=== PATIENT | male | born 1990 | race Caucasian/White ===

== ENCOUNTER 2021-10-27 09:56 | Emergency (ER) | payer OTHER ==
[~2021-10-27] VITALS: Ht 175.3 cm; Wt 75.0 kg
[2021-10-27] MEDS ORDERED: SERT-158 PO (09:57)
[2021-10-27] MEDS ORDERED: DEXAMETHASONE SOD PHOS 4 MG/ML 5 ML VIAL IM ONE (12:30)
[2021-10-27] MEDS ORDERED: AMOX TR/POT CLAV 875 MG/125 MG TABLET PO ONE (12:30)
[2021-10-27] MEDS ORDERED: AMOX1TAB16 PO (13:17)
[2021-10-27] MEDS ORDERED: IBUP-2070 PO (13:17)
[2021-10-27 13:22] VITALS: BP 121/64
== END 2021-10-27 13:22 | disposition home or self-care (01) ==
LOC: EMS 10:01
DX: J36 Peritonsillar abscess (principal)
CPT/HCPCS: 96372; 99283; J1100